=== PATIENT | female | born 1990 | race African-American/Black ===

== ENCOUNTER 2020-05-21 09:16 | Emergency (ER) | payer MEDICAID ==
[~2020-05-21] VITALS: Ht 167.6 cm; Wt 177.2 kg
[2020-05-21 10:21] LABS: BASOPHILS % 0.6 % (0.0-2.0); HEMOGLOBIN. 10.8 g/dL (12.0-16.0); LYMPHOCYTES % 14.2 % (20.0-50.0); MEAN CORPUSCULAR HEMOGLOBIN 21.8 pg (28.0-32.0); MEAN CORPUSCULAR VOLUME 76.6 fL (81.0-99.0); MEAN PLATELET VOLUME 9.2 fl (7.4-10.4); MONOCYTES % 4.7 % (2.0-8.0); NEUTROPHILS % 78.5 % (40.0-76.0); PLATELET 272 x1000/uL (130-400); RED BLOOD CELL COUNT 4.96 mill/uL (4.2-5.4); RED CELL DISTRIBUTION WIDTH 21.1 % (11.6-14.6)
[2020-05-21 10:29] LABS: CHLORIDE 102 mEq/L (98-107)
[2020-05-21 10:33] LABS: PARTIAL THROMBOPLASTIN TIME 22.5 sec (23.4-31.0); PROTHROMBIN TIME 10.4 sec (9.6-11.0)
[2020-05-21 12:25] VITALS: BP 120/62
[2020-05-21] MEDS ORDERED: MAGNESIUM/ALUMINUM HYDROXIDE/SIMETHICONE 30ML UDC PO PRN (14:30)
[2020-05-21] MEDS ORDERED: FUROSEMIDE 20MG/2ML VIAL IVP ONE (14:30)
[2020-05-21] MEDS ORDERED: ACETAMINOPHEN 325MG TABLET PO PRN ×2 (14:30)
[2020-05-21] MEDS ORDERED: DOCUSATE SODIUM 100MG CAPSULE PO PRN (14:30)
[2020-05-21] MEDS ORDERED: GUAIFENESIN 200MG/10ML SUGAR FREE UDC PO PRN (14:30)
[2020-05-21] MEDS ORDERED: IPRATROPIUM/ALBUTEROL 0.5-3(2.5)MG/3ML NEB ORI PRN (14:30)
[2020-05-21] MEDS ORDERED: NITROGLYCERIN 0.4MG TABLET SL SL PRN (14:30)
[2020-05-21] MEDS ORDERED: CLONIDINE 0.1MG TABLET PO PRN (14:30)
[2020-05-21] MEDS ORDERED: ZOLPIDEM TARTRATE 5MG TABLET PO PRN (14:30)
[2020-05-21] MEDS ORDERED: KETOROLAC 15MG/ML VIAL IV PRN (14:30)
[2020-05-21] MEDS ORDERED: ONDANSETRON HCL 4MG/2ML INJ IV PRN (14:30)
[2020-05-21] MEDS ORDERED: GUAIFENESIN/DM 600MG/30MG ER TAB 12HR PO SCH (15:00)
[2020-05-21 16:40] LABS: TOTAL IRON BINDING CAPACITY 515 ug/dL (250-450)
[2020-05-21] MEDS ORDERED: RIVAROXABAN 15 MG TABLET PO SCH (17:00)
[2020-05-21 17:01] LABS: BG BASE EXCESS 7.4 mmol/L (-2.0-2.0); BG FRACTION INSPIRED OXYGEN 21; BG HCO3 ACT 37.5 mmol/L (22.0-26.0); BG METHEMOGLOBIN 0.2 % (0.0-1.5); BG OXYGEN SATURATION 82.6 % (92.0-98.5); BG OXYHEMOGLOBIN 80.8 % (94.0-97.0); BG PCO2 87.3 mmHg (35.0-45.0); BG PH 7.251 (7.350-7.450); BG PO2 54.9 mmHg (75.0-100.0); BG SAMPLE SITE RIGHT RADIAL; BG TOTAL HEMOGLOBIN 12.3 g/dL (12.0-18.0); BG VENT MODE ROOM AIR
[2020-05-21 17:24] LABS: FOLIC ACID (FOLATE) SERUM 15.7 ng/mL (>5.38)
[2020-05-21] MEDS ORDERED: FAMOTIDINE 20MG TABLET PO SCH (21:00)
[2020-05-21] MEDS ORDERED: ASCORBIC ACID 500 MG TABLET PO SCH (21:00)
[2020-05-21] MEDS ORDERED: SILDENAFIL CITRATE 20MG TABLET PO SCH (22:00)
[2020-05-22] MEDS ORDERED: ZINC SULFATE 220 MG ( 50 ) CAPSULE PO SCH (09:00)
[2020-05-22] MEDS ORDERED: ASPIRIN 325MG EC TABLET PO SCH (09:00)
== END 2020-05-21 18:02 | disposition left against medical advice (07) ==
LOC: ER 09:16 → EDBEDREQTM 12:56 → EDBEDREQ 13:07 → EDBEDREQTM 13:07 → ER 18:02 → ENRESERV 20:20 → CANRESERV 20:20 → CANBEDREQ 05-22 15:16
DX: J96.91 Respiratory failure, unspecified with hypoxia (principal); R79.89 Other specified abnormal findings of blood chemistry; I27.20 Pulmonary hypertension, unspecified; G47.33 Obstructive sleep apnea (adult) (pediatric); I11.0 Hypertensive heart disease with heart failure; I50.32 Chronic diastolic (congestive) heart failure; D50.9 Iron deficiency anemia, unspecified; E66.01 Morbid (severe) obesity due to excess calories; E44.0 Moderate protein-calorie malnutrition; Z68.44 Body mass index [BMI] 60.0-69.9, adult; Z71.3 Dietary counseling and surveillance; Z99.81 Dependence on supplemental oxygen
CPT/HCPCS: 36415; 36600; 71045; 78580; 80053; 82375; 82607; 82728; 82746; 82805; 83540; 83550; 83605; 83615; 83880; 84145; 84484; 85025; 85379; 85610; 85730; 93005; 93970; 99285; A9540; Z7610

== ENCOUNTER 2023-05-10 15:20 | Observation (INO) | payer MEDICAID, OTHER ==
[~2023-05-10] VITALS: Ht 165.1 cm; Wt 133.4 kg
[2023-05-10] MEDS ORDERED: [UNRECOGNIZED DRUG - CODE] (16:10)
[2023-05-10 17:27] LABS: BASOPHILS % 0.4 % (0.0-2.0); EOSINOPHILS % 1.1 % (0.0-5.0); HEMATOCRIT. 34.5 % (36.0-48.0); HEMOGLOBIN. 11.3 g/dL (12.0-16.0); LYMPHOCYTES % 15.6 % (20.0-50.0); MEAN CORPUSCULAR HEMOGLOBIN 26.8 pg (28.0-32.0); MEAN CORPUSCULAR HGB CONC 32.6 g/dL (31.0-37.0); MEAN CORPUSCULAR VOLUME 82.1 fL (81.0-99.0); MEAN PLATELET VOLUME 8.9 fl (7.4-10.4); MONOCYTES % 3.9 % (2.0-8.0); PLATELET 221 x1000/uL (130-400); RED CELL DISTRIBUTION WIDTH 15.1 % (11.6-14.6); WHITE BLOOD COUNT 8.6 x1000/uL (4.5-11.0)
== END 2023-05-10 18:00 | disposition home or self-care (01) ==
LOC: 8 EST LDRP 15:20
PROVIDERS: ADMIT Obstetrics & Gynecology; ATTEND Obstetrics & Gynecology
DX: O26.892 Other specified pregnancy related conditions, second trimester (principal); I95.9 Hypotension, unspecified; O62.9 Abnormality of forces of labor, unspecified; Z3A.23 23 weeks gestation of pregnancy
CPT/HCPCS: 59025; 85025; 36415; G0378 ×2